=== PATIENT | female | born 2000 | race Two or more races ===

== ENCOUNTER 2024-10-11 08:57 | Outpatient (RCR) | payer MEDICAID, SELFPAY ==
[2024-10-11 09:45] LABS: HCG Qualitative,Urine Negative
--- NOTE | 2024-10-11 10:00 | XR_ITS ---
Examination: Nuclear medicine hepatobiliary scan, static HIDA scan Date of exam: October 03, 2024 0952 hours INDICATIONS: Heartburn acid reflux 6 months Technique And Findings: 6.1 mCi 99m Hepatolite administered intravenously. Serial imaging obtained immediately through 60 minutes. Homogenous uptake in the liver. Common bile duct small bowel activity noted no gallbladder activity Impression: Negative for gallbladder activity consistent with cystic duct obstruction
== END 2024-10-16 23:59 | disposition home or self-care (01) ==
LOC: SNUC 08:57
PROVIDERS: PCP Physician Assistant; Referring Provider Physician Assistant; Visit Provider Physician Assistant
DX: R74.8 Abnormal levels of other serum enzymes (principal); Z32.00 Encounter for pregnancy test, result unknown
CPT/HCPCS: 78227; 81025; A9537